=== PATIENT | female | born 1945 | race Caucasian/White ===

== ENCOUNTER 2016-04-21 09:33 | Inpatient (IN) | payer MEDICARE, OTHER ==
[~2016-04-21] VITALS: Ht 167.6 cm; Wt 60.8 kg
--- NOTE | ~2016-04-21 | PR ---
[place], [place] PROGRESS NOTE NAME: GARETH CARRERA [facility] #: [id number] UNIT #: [id number] ROOM: [facility] DOCTOR: MYNOR FLORES MD,CHOCO BIRTHDATE: [birth year] DOS: 04/23/2016 PULMONARY PROGRESS NOTE SUBJECTIVE: The patient was seen and examined on 04/23/2016. The patient remains unconscious at this time on the BiPAP and vasopressor with Levophed. She has been noted with hypotension. She continued to have unconsciousness status. OBJECTIVE: VITAL SIGNS: Normal temperature, respiratory rate 20, heart rate of 84, blood pressure of 65/43-70/34. Intake is 6300 mL and output 410 mL. Pulse ox saturation was 81% on 100% oxygen supplementation was noted. HEENT: Examination shows no acute change. NECK: Supple. CARDIOVASCULAR: S1, S2 audible. LUNGS: Diffuse reduction in the breath sounds bilaterally. ABDOMEN: Soft and nontender. EXTREMITIES: She was so cold to touch. There was no edema. IMPRESSION: The patient with acute severe hypoxic respiratory failure, multiorgan system failure for this patient, unconsciousness, hypotension, and pneumonia and others. PLAN OF TREATMENT: The patient's prognosis essentially remains the same as previously. Continue to treat conservatively for the patient. No further intervention will be planned from the Pulmonary standpoint. Overall, prognosis of the patient remains grave. CHOCO LOWE MD CM:PNTRANS [id number] CHOCO FLORES MD 04/23/16 1302 interface
--- NOTE | ~2016-04-21 | O ---
[place], [place] OPERATIVE NOTE NAME: [facility] [id number] UNIT #: [id number] ROOM: [facility] DOCTOR: JASMINA SCHMID DO BIRTHDATE: [birth year] DOS: 04/21/2016 TIME OF THE PROCEDURE: Approximately 3:30 in the afternoon. INDICATION: Hemodynamic monitoring and IV access. RESIDENT PERFORMING THE PROCEDURE: Jasmina Schmid DO SUPERVISING RESIDENT: ____ DESCRIPTION OF PROCEDURE: A timeout was completed verifying the correct patient, procedure, site, positioning, and special equipment required. The patient was placed in a dependent position appropriate for central line placement. The patient's right neck and shoulder was exposed and draped in a sterile fashion, 1% lidocaine was used to anesthetize the surrounding skin area. A triple lumen catheter was introduced into the internal jugular using the Seldinger technique under ultrasound guidance. The catheter was threaded smoothly over the guidewire and the appropriate blood return was obtained. Each lumen of the catheter was evacuated of air and flushed with sterile saline. The catheter was then sutured in place to the skin and a sterile dressing applied. Distal pulses were checked and found to be adequate. ____ was present for the entire procedure. Estimated blood loss was approximately 1 mL. The patient tolerated the procedure well and there were no complications. The chest x-ray was obtained to verify placement and the tip was verified to be at the cavoatrial junction. Jasmina Schmid DO SADIE MEZA CM:OPRECORD:OPERATIVE NOTE [id number] JASMINA SCHMID DO 04/22/16 0933 interface
--- NOTE | ~2016-04-21 | CON ---
[place], [place] REPORT OF CONSULTATION NAME: GARETH CARRERA [facility] #: [id number] UNIT #: [id number] ROOM: [facility] DOCTOR: MYNOR FLORES MD,CHOCO BIRTHDATE: [birth year] DOS: 04/22/2016 PULMONARY CONSULTATION, EVALUATION AND MANAGEMENT NOTE REASON FOR CONSULTATION: Acute hypoxic respiratory failure. HISTORY OF PRESENT ILLNESS: A 70-year-old white female who has been known with past history of severe centrilobular emphysema with chronic hypoxic respiratory failure. The patient has been brought to the hospital. The patient was described with increased shortness of breath which has been occurring at home with significant decreased physical activity. She was also noted what is described as a stomach virus by the family members. All history has been essentially reviewed for this patient, past documentation, medical records and hospitalization. The patient has developed severe acute hypoxic respiratory failure. The patient with chronic hypoxic respiratory failure, hypercapnia. She has been admitted to the hospital Intensive Care Unit with code status of DNRCC-Arrest which was changed for DNR-CC by the patient's daughter. She has been currently noted unconscious, remains on the BiPAP, still noted with oxygen desaturation on 100% oxygen supplementation with maximal changes in the BiPAP were done. The patient does not respond to the vocal commands. REVIEW OF SYSTEMS: Could not be obtained for this patient because of the current change in mental status and unconsciousness status. PAST MEDICAL HISTORY: 1. History of severe centrilobular emphysema. 2. Essential hypertension. 3. Osteoporosis. 4. Past nicotine abuse. 5. Chronic hypoxic and hypercapnic respiratory failure. 6. History of pneumonia for the patient, which has been noted significant large in the lung for this patient, nonaspiration, treated at [facility] with recent hospitalization also described for the pneumonia per family members. Further details were unknown. SOCIAL HISTORY: The patient is . She has one daughter. The patient was living at home. Smoking has been noted as a teenager, a pack of cigarettes per day, not sure if the patient is currently smoking cigarettes at this time or not. PAST SURGICAL HISTORY: Noted as essentially no major surgeries. FAMILY HISTORY: Both parents had been and history was unknown. HOME MEDICATIONS: Listed use of Fosamax, Tylenol, Norvasc, aspirin, Symbicort, calcium carbonate, Zyrtec, vitamin D, citalopram, Advair, Lasix, DuoNeb, lisinopril with hydrochlorothiazide, omeprazole, potassium, and Requip. DRUG ALLERGIES: SHE HAS REPORTED ALLERGIES TO PENICILLIN AND AMOXICILLIN. [place], [place] REPORT OF CONSULTATION NAME: GARETH CARRERA UNIT #: [id number] ROOM: [facility] DOCTOR: CHOCO JEFFERSON MD BIRTHDATE: [birth year] PHYSICAL EXAMINATION: GENERAL: This is a 70-year-old female who has been currently noted unconscious with the use of the BiPAP. Height for the patient recorded on current admission noted by the nursing staff with height of 5 feet 6 inches, weight of 134 pounds, BMI 21.6. VITAL SIGNS: The patient noted hypothermia, temperature 94 degree Fahrenheit, noted on hypothermia blanket. The respiratory rate recorded 16-24. Heart rate of 84. Blood pressure was noted as 77/30-104/59. Pulse oxygen saturation was recorded at 84% saturation on 100% oxygen, BiPAP settings of 20/12. HEENT: Head was atraumatic. Eyes nonicterus. CARDIOVASCULAR: S1, S2 is audible. LUNGS: Shows diffuse reduction in breath sounds and crackles of the lungs were noted for this patient on the right side. Scattered wheezing was also present. ABDOMEN: Flat, soft, nontender. EXTREMITIES: Shows loss of muscle mass. CENTRAL NERVOUS SYSTEM: Unconsciousness, further examination could not be performed. SKIN: No lesions or rashes. MUSCULOSKELETAL: No gross deformities. LABORATORY DATA: CBC of the patient, the labs 04/21/2016 showed WBC count 3.5, platelet count 124,000, normal hemoglobin and hematocrit. The CMP of the patient on 04/21/2016, BUN 44, creatinine 1.70. Glucose 165, sodium 131, albumin 2.3. Lactic acid 3.9 on admission. CK-MB and troponin of the patient on 04/21/2016 normal. On admission, INR for the patient on 04/21/2016 was 1.2, which is normal. Arterial blood gas of the patient on 100% oxygen, pH of 6.96, pO2 of 100 and pCO2 of 57 for this patient on the BiPAP at 100% oxygen supplementation. CBC repeated this morning, WBC count 15,000, hemoglobin and hematocrit are normal, platelet count 73,000. BMP of the patient this morning, BUN of 39, creatinine 1.33, glucose 165. Albumin 1.6. The chest x-ray that was done for this patient shows a large area of consolidation which is involving two-thirds of the right lung for this patient with possibility of abscess formation cannot be completely excluded in the right lower lobe. Moderate sized infiltration noted in the left lower lobe as well, multi-lumen catheter noted in place. IMPRESSION: The patient who has been currently admitted to the hospital noted with: 1. Multilobar pneumonia with severe acute hypoxic and hypercapnic respiratory failure with aspiration pneumonia, gram-positive and gram-negative organism would be considered. 2. Severe protein-calorie malnutrition was also suspected. 3. Severe acute sepsis with septic shock with change in mental status with acute kidney injury as well and lactic acidosis. 4. Acute exacerbation of chronic obstructive pulmonary disease was also noted. 5. Previous history of nicotine abuse as well. Other comorbid conditions as noted. PLAN OF TREATMENT: The patient is already getting broad-spectrum intravenous antibiotics for the Intensive Care Unit coverage, which will be continued. The [place], [place] REPORT OF CONSULTATION NAME: GARETH CARRERA UNIT #: [id number] ROOM: [facility] DOCTOR[facility] [birth year] BiPAP for this patient certainly could be discontinued as it is not noted in fact for the patient to improve the hypercarbia. If necessary, purely comfort measures should be instituted. It has been noted past DNR comfort care orders for this patient, which has been resented by the family member, but I am not sure if she has the power of assistant county attorney. If she does not have any designated power of assistant county attorney without any known code status, certainly the current order to be continued with DNRCC-Arrest, otherwise the patient should be made comfort care as well in my recommendation. If necessary, obtain the ethics committee to give consultation. Overall, prognosis of the patient noted extremely poor at the present time of assessment without support of the body organs including the respiratory status and others. Further change in treatment will be done based on the progression of the illness. Thank you for allowing me to participate in the care of this patient. CHOCO LOWE MD CM:CONSTR:REPORT OF CONSULTATION 1232 04/23/16 0734 interface
[~2016-04-21 09:33] MED LIST: ADVAIR 250/501 EA INH; AMLODIPINE BES1 CAP PO; ASPIRIN81 M1 PO; ATORVASTATIN CA10 M1 PO; CELEXA20 MG PO; DOXYCYCLINE100 M3 PO; DOXYCYCLINE100 MG PO; FLAGYL500 MG PO; FOSAMAX70 M1 PO; HYDROCODONE BIT1 T11 PO; IBU800 M1 PO; KLOR-CON M2020 ME1 PO; LISINOPRIL-HYDR1 TA1 PO; NORVASC10 MG PO; OXYGEN NAS; OYSTER SHELL 51 EACH PO; PREDNISONE10 MG PO; PRILOSEC20 M2 PO; QUALITY CHOICE10 M3 PO
[2016-04-21 10:02] LABS: HEMATOCRIT 45.9 % (37.0-47.0); NUCLEATED RED BLOOD CELL 1.1 % (0.0-0.0)
[2016-04-21 10:19] LABS: ALBUMIN 2.3 gm/dl (3.1-4.5); ALKALINE PHOSPHATASE 43 U/L (45-117); BILIRUBIN, TOTAL 0.8 mg/dl (0.2-1.0); BUN 44 mg/dl (7-24); CARBON DIOXIDE 27 mmol/L (21-32); CHLORIDE 93 mmol/L (98-107); EST GLOM FILT AFRICAN AMERICAN 36 ml/min; GLUCOSE 56 mg/dL (65-99); SGOT/AST 33 IU/L (3-35); SGPT/ALT 34 U/L (12-78); SODIUM 131 mmol/L (136-145); TOTAL PROTEIN 6.4 gm/dL (6.4-8.2)
[2016-04-21 10:21] LABS: HEMOGLOBIN 15.5 g/dl (12.0-16.0); MEAN CELL VOLUME 91.6 fl (81.0-99.0); MEAN CORPUSCULAR HGB 30.9 pg (27.0-31.0); MEAN CORPUSCULAR HGB CONC 33.8 g/dl (33.0-37.0); MEAN PLATELET VOLUME 13.6 fl (9.6-12.3); PLATELET COUNT AUTOMATED 124 10*3/uL (130-400); RED BLOOD COUNT 5.01 10*6/uL (4.10-5.10); RED CELL DISTRI WIDTH 14.3 % (0-14.5); WHITE BLOOD COUNT 3.5 10*3/uL (4.8-10.8)
[2016-04-21 10:23] LABS: TROPONIN I < 0.015 ng/ml (<0.045)
[2016-04-21 10:27] LABS: LYMPHOCYTE # 0.5 10*3/uL (1.3-4.4); METAMYELOCYTES 16 % (0-0); MONOCYTE # 0.1 10*3/uL (0.1-1.0); NEUTROPHIL # 2.4 10*3/uL (2.3-7.9); NEUTROPHILS 68 % (47-73); TOTAL CELLS COUNTED 50 #CELLS
[2016-04-21 10:29] LABS: BURR CELLS MODERATE; PLATELET SUFFICIENCY LOW (NORMAL)
[2016-04-21] MEDS ORDERED: POTASSIUM CHLO20 ME3 PO (10:40)
[2016-04-21] MEDS ORDERED: Oscal,Oyster S500 MG PO (10:41)
[2016-04-21] MEDS ORDERED: FOSAMAX70 M1 PO (10:41)
[2016-04-21] MEDS ORDERED: VITAMIN D5000 UNIT PO (10:42)
[2016-04-21] MEDS ORDERED: ADVAIR 250/501 EA INH (10:42)
[2016-04-21] MEDS ORDERED: SYMBICORT1 AE1 INH (10:42)
[2016-04-21] MEDS ORDERED: DUONEB 3 MG/3 ML3 M1 INH (10:42)
[2016-04-21] MEDS ORDERED: ASPIRIN81 M1 PO (10:43)
[2016-04-21] MEDS ORDERED: CLARITIN10 MG PO (10:43)
[2016-04-21] MEDS ORDERED: CITALOPRAM20 MG PO (10:45)
[2016-04-21] MEDS ORDERED: LISINOPRIL-HYDR1 TA1 PO (10:45)
[2016-04-21] MEDS ORDERED: OMEPRAZOLE20 M2 PO (10:45)
[2016-04-21] MEDS ORDERED: ROPINIROLE HCL5 MG PO (10:46)
[2016-04-21] MEDS ORDERED: '''ZYRTEC PO (10:46)
[2016-04-21] MEDS ORDERED: AMLODIPINE BESY10 MG PO (10:46)
[2016-04-21] MEDS ORDERED: LASIX40 MG PO (10:47)
[2016-04-21] MEDS ORDERED: VICODIN 5-3001 EACH PO (10:47)
[2016-04-21] MEDS ORDERED: TYLENOL325 M2 PO (10:47)
[2016-04-21 11:59] LABS: LA>2 REFLEX 2 HR DRAW NOW
[2016-04-21 12:26] LABS: CKMB 1.7 ng/ml (0.5-3.6); CPK 52 U/L (26-192)
[2016-04-21 12:27] LABS: TROPONIN I < 0.015 ng/ml (<0.045)
[2016-04-21 12:39] LABS: LA>2 RFLX FOLLOW UP AT 2 HRS 3.5 mmol/L (0.4-2.0)
[2016-04-21 12:54] LABS: INTERNATIONAL NORM RATIO 1.2 (2.0-3.5); PROTHROMBIN TIME 12.8 SECONDS (9.0-12.4)
[2016-04-21 14:22] LABS: LA>2 REFLEX 4 HR DRAW NOW
[2016-04-21 18:05] LABS: CKMB 2.4 ng/ml (0.5-3.6)
[2016-04-21 18:11] LABS: CPK 96 U/L (26-192); TROPONIN I < 0.015 ng/ml (<0.045)
[2016-04-22 00:20] LABS: ABG CO2 CONTENT 27.7 mmol/L (23-27); ABG HCO3 24.2 mmol/l (22-26); ABG TEMPERATURE 96.4 F (98.0-99.0); ARTERIAL BLOOD GAS PO2 57.1 mmHg (80-90)
[2016-04-22 00:22] LABS: ABG BASE EXCESS -12.6 mmol/L (-2.0-2.0)
[2016-04-22 00:24] LABS: ARTERIAL BLOOD GAS PH 6.969 (7.35-7.45)
[2016-04-22 00:24] LABS: CKMB 4.3 ng/ml (0.5-3.6)
[2016-04-22 00:25] LABS: CPK 140 U/L (26-192); TROPONIN I < 0.015 ng/ml (<0.045)
[2016-04-22 01:47] LABS: LA>2 REFLEX 2 HR DRAW NOW
[2016-04-22 01:55] LABS: LA>2 RFLX FOLLOW UP AT 2 HRS 2.1 mmol/L (0.4-2.0)
[2016-04-22 03:47] LABS: LA>2 REFLEX 4 HR DRAW NOW
[2016-04-22 03:58] LABS: HEMATOCRIT 47.5 % (37.0-47.0); HEMOGLOBIN 14.3 g/dl (12.0-16.0); MEAN CORPUSCULAR HGB 30.4 pg (27.0-31.0); MEAN CORPUSCULAR HGB CONC 30.1 g/dl (33.0-37.0); NUCLEATED RED BLOOD CELL 0.1 10*3/uL (0.0-0.0); NUCLEATED RED BLOOD CELL 0.5 % (0.0-0.0); RED CELL DISTRI WIDTH 15.2 % (0-14.5)
[2016-04-22 04:00] LABS: MEAN CELL VOLUME 101.1 fl (81.0-99.0); PLATELET COUNT AUTOMATED 73 10*3/uL (130-400)
[2016-04-22 04:09] LABS: INTERNATIONAL NORM RATIO 1.3 (2.0-3.5); PROTHROMBIN TIME 14.3 SECONDS (9.0-12.4)
[2016-04-22 04:15] LABS: HEMOGLOBIN A1c 5.3 % (4.8-5.6)
[2016-04-22 04:18] LABS: ALBUMIN 1.6 gm/dl (3.1-4.5); BILIRUBIN, TOTAL 0.5 mg/dl (0.2-1.0); FREE T4 0.9 ng/dl (0.76-1.46); MAGNESIUM 2.4 mg/dL (1.5-2.1); PHOSPHOROUS 6.6 mg/dL (2.5-4.9); POTASSIUM 4.5 mmol/L (3.5-5.1); TOTAL PROTEIN 5.2 gm/dL (6.4-8.2)
[2016-04-22 04:24] LABS: THYROID STIM HORMONE (HS) 0.376 uIU/ml (0.358-4.75)
[2016-04-22 05:32] LABS: LYMPHOCYTE # 0.6 10*3/uL (1.3-4.4); METAMYELOCYTES 11 % (0-0); MONOCYTE # 0.5 10*3/uL (0.1-1.0); MYELOCYTES 2 % (0-0); NEUTROPHILS 80 % (47-73); TOTAL CELLS COUNTED 100 #CELLS
[2016-04-22 05:33] LABS: BURR CELLS MANY; PLATELET SUFFICIENCY LOW (NORMAL)
[2016-04-22 06:45] LABS: VITAMIN D, 25-HYDROXY 65.8 ng/mL (30-100)
[2016-04-22 06:46] LABS: FOLIC ACID 6.16 ng/mL (>5.38)
== END 2016-04-23 14:11 | disposition hospice, home (50) | DRG 871 ==
LOC: ED 09:33 → ICCU 10:10 → EDHOLD 10:10 → 4E 10:10 → ICCU 12:39
PROVIDERS: Hospitalist; Registered Nurse; Student in an Organized Health Care Education/Training Program
PROC: 02HV33Z Insertion of Infusion Device into Superior Vena Cava, Percutaneous Approach (ICD-10-PCS; principal; 2016-04-21)
PROC: B548ZZA Ultrasonography of Superior Vena Cava, Guidance (ICD-10-PCS; principal; 2016-04-21)
PROC: 5A09457 Assistance with Respiratory Ventilation, 24-96 Consecutive Hours, Continuous Positive Airway Pressure (ICD-10-PCS; principal; 2016-04-21)
DX: A41.9 Sepsis, unspecified organism (principal); R65.21 Severe sepsis with septic shock; J96.21 Acute and chronic respiratory failure with hypoxia; J69.0 Pneumonitis due to inhalation of food and vomit; E43 Unspecified severe protein-calorie malnutrition; D69.6 Thrombocytopenia, unspecified; N17.9 Acute kidney failure, unspecified; J18.1 Lobar pneumonia, unspecified organism; E87.1 Hypo-osmolality and hyponatremia; J96.22 Acute and chronic respiratory failure with hypercapnia; J44.0 Chronic obstructive pulmonary disease with (acute) lower respiratory infection; J44.1 Chronic obstructive pulmonary disease with (acute) exacerbation; I10 Essential (primary) hypertension; M81.0 Age-related osteoporosis without current pathological fracture; Z66 Do not resuscitate; E83.39 Other disorders of phosphorus metabolism; E83.41 Hypermagnesemia; T14.8 Other injury of unspecified body region; F40.240 Claustrophobia; Z88.1 Allergy status to other antibiotic agents; Z88.0 Allergy status to penicillin; Z79.82 Long term (current) use of aspirin; Z79.899 Other long term (current) drug therapy; Z68.21 Body mass index [BMI] 21.0-21.9, adult; Z87.891 Personal history of nicotine dependence

== ENCOUNTER 2016-04-23 14:17 | Inpatient (IN) | payer MEDICARE, OTHER ==
[~2016-04-23 14:17] MED LIST changes: +'''ZYRTEC PO; +AMLODIPINE BESY10 MG PO; +CITALOPRAM20 MG PO; +CLARITIN10 MG PO; +DUONEB 3 MG/3 ML3 M1 INH; +LASIX40 MG PO; +OMEPRAZOLE20 M2 PO; +Oscal,Oyster S500 MG PO; +POTASSIUM CHLO20 ME3 PO; +ROPINIROLE HCL5 MG PO; +SYMBICORT1 AE1 INH; +TYLENOL325 M2 PO; +VICODIN 5-3001 EACH PO; +VITAMIN D5000 UNIT PO
[2016-04-23 14:35] VITALS: BP 62/24
== END 2016-04-23 16:23 | disposition expired | DRG 871 ==
LOC: ICCU 14:17
DX: A41.9 Sepsis, unspecified organism (principal); R65.21 Severe sepsis with septic shock; J96.21 Acute and chronic respiratory failure with hypoxia; E43 Unspecified severe protein-calorie malnutrition; J18.9 Pneumonia, unspecified organism; D69.6 Thrombocytopenia, unspecified; E87.1 Hypo-osmolality and hyponatremia; J44.9 Chronic obstructive pulmonary disease, unspecified; Z66 Do not resuscitate; Z51.5 Encounter for palliative care; E83.41 Hypermagnesemia; E83.39 Other disorders of phosphorus metabolism; T14.8 Other injury of unspecified body region; I10 Essential (primary) hypertension; M81.0 Age-related osteoporosis without current pathological fracture